=== PATIENT | male | born 1980 | race Caucasian/White ===

== ENCOUNTER 2018-06-25 22:27 | Emergency (ER) | payer OTHER ==
[2018-06-25] MEDS: KETOROLAC 30 MG INJ IM (23:24)
== END 2018-06-26 00:21 | disposition home or self-care (01) ==
LOC: E/R 22:27
DX: S93.601A Unspecified sprain of right foot, initial encounter (principal); S00.03XA Contusion of scalp, initial encounter; R40.2142 Coma scale, eyes open, spontaneous, at arrival to emergency department; R40.2362 Coma scale, best motor response, obeys commands, at arrival to emergency department; R40.2252 Coma scale, best verbal response, oriented, at arrival to emergency department; W18.39XA Other fall on same level, initial encounter; Y92.9 Unspecified place or not applicable
CPT/HCPCS: 70450; 73630; 96372; 99285-25